=== PATIENT | male | born 1980 | race Caucasian/White ===

== ENCOUNTER 2018-06-16 09:15 | Emergency (ER) | payer MEDICAID, SELFPAY ==
[2018-06-16 09:43] VITALS: BP 137/85; PULSE 92; RESP 16; TEMP 36.3; O2SAT 99
--- NOTE | 2018-06-16 10:38 | ED.GENADUL_ITS ---
Discharge Plan Disposition Patient Disposition: HOME Condition: Improving Discharge Details Chief Complaint: Cellulitis Clinical Impression: Abscess, gluteal, right Primary Care Provider: Augustin Fisher ED Provider: Robbin Burger Home Meds and New Rx's Prescriptions: New sulfamethoxazole-trimethoprim [Bactrim DS] 800-160 mg tablet 1 tab PO BID 5 Days Qty: 10 RF: 0 No Action dextroamphetamine-amphetamine [Adderall] 30 MG tablet 40 mg PO BID RF: 0 Discharge Instructions Instructions: Abscess (ED) Additional Instructions: 1. Drink plenty of fluids. 2. Continue all medications as prescribed. 3. Acetaminophen 1000mg every 4 hours (up to 5 time a day) and/or ibuprofen 600mg every 6 hours as needed for fever or pain. 4. Bactrim DS twice a day for 5 days per 5. Leave dressing in place for 1-2 days. Frequent warm compresses/sitz baths. Return to the Emergency Department (ED) if your condition worsens, does not improve as expected, or for ANY other concerns. Specifically, return if you have new or uncontrolled pain, worsening fever, difficulty breathing, vomiting, or are unable to drink fluids. Referrals: Augustin Fisher, DINING MANAGER [Primary Care Provider] - Medical Decision Making 38-year-old healthy gentleman presents with 3 days of accelerating erythema, tenderness, and swelling to his right proximal lateral gluteal region. Exam normal except for the lesion described above. Bedside ultrasound confirmed an underlying fluid collection suggestive of an abscess. Incision and drainage performed with a field block followed by scalpel incision with significant purulent content expressed. Needle drivers were used to break up deep loculations and the wound was packed with iodoform gauze. Patient discharged home with wound care instructions and a 5-day prescription for Bactrim DS. Given usual customary return instructions at time of discharge. Medical Records Medical records reviewed: Yes I reviewed the patient's medical records. HPI 38-year-old gentleman with a past medical history which includes GERD. He has no previous history of abscesses or of colonized MRSA infection. Presents with 3 days of worsening pain, tenderness, erythema, and swelling on his right lateral gluteal region. First noted a boil 3 days ago and attempted to express pus from the lesion. He notes that this was significantly painful and had no pus expressed. Over the past 3 days, he has had worsening erythema, pain, and swelling. He attempted to self incise a possible abscess unsuccessfully at home. Denies associated fever/chills, erythema proximal to the lesion. Otherwise denies any nausea/emesis, lower extremity pain or swelling, chest pain/palpitations, or generalized abdominal pain. General Date/Time Provider Initiated Documentation: 06/16/18 10:01 . Related Data Home Medications Medication Instructions Recorded Confirmed dextroamphetamine-amphetamine 40 mg PO BID 07/31/12 06/16/18 [Adderall] sulfamethoxazole-trimethoprim 1 tab PO BID 5 Days #10 tab NS 06/16/18 [Bactrim DS] Previous Rx's Medication Instructions Recorded sulfamethoxazole-trimethoprim 1 tab PO BID 5 Days #10 tab NS 06/16/18 [Bactrim DS] Allergies Allergy/AdvReac Type Severity Reaction Status Date / Time SCALLOPS Allergy Severe anaphlaxis Uncoded 06/16/18 09:48 General Stated Complaint: Cellulitis EBONY: 4 Review of Systems Review of Systems All systems are reviewed and are unremarkable except as noted in HPI and below: CONSTITUTIONAL: no fevers/chills, no weakness or change in appetite EYES: no change in vision HEENT: no throat pain or difficulty swallowing; no neck pain CARDIOVASCULAR: no chest pain, palpitations, leg swelling, or diaphoresis RESPIRATORY: no cough, dyspnea, wheezing GASTROINTESTINAL: no abdominal pain, melena, nausea/emesis GENITOURINARY: no dysuria, flank pain, MUSCULOSKELETAL: no pack pain, myalgias, arthralgias INTEGUMENTARY: Tender, erythematous, swollen, area on the right proximal gluteal region NEUROLOGIC: no headache, focal weakness, difficulty with speech, numbness PSYCHIATRIC: no confusion, no anxiety HEME: no easy bruising or bleeding ALLERGIC: no urticaria PFSH Medical History Gastroesophageal reflux disease Surgical History Myringotomy w/ PE (pressure equalizing) tubes Tonsillectomy and adenoidectomy Family History Grandfather Personal history of malignant neoplasm Grandmother Personal history of malignant neoplasm Social History Smoking/Tobacco Use Status: Never Alcohol Intake: never Drug use: Never Substance use type: does not use Do you feel safe at home: Yes Do you feel safe in your relationship?: Yes Exam Narrative Exam Narrative: Nursing note and vital signs have been reviewed and noted. GENERAL: alert, active, no acute distress, well -hydrated, well-nourished HEENT: atraumatic/normocephalic, PERRLA, EOMI, conjunctiva clear, external ears/canals normal, nasal mucosa normal NECK: supple, full range of motion CARDIOVASCULAR: nl pulses, no edema PULMONARY: nl effort, no audible wheezing or stridor ABDOMEN: non-distended EXTREMITY: normal muscle tone, all joints with FROM, no deformity NUERO: normal mentation, moving all extremities, normal stance and gait, PSYCH: alert and oriented SKIN: 4 cm diameter erythematous patch on the right proximal lateral gluteal region with induration, tenderness, and a central excoriated lesion with no significant drainage Course Vital Signs Temperature 97.3 F L 06/16/18 09:43 Pulse 92 H 06/16/18 09:43 Respiratory Rate 16 06/16/18 09:43 Blood Pressure 137/85 06/16/18 09:43 Pulse Oximetry 99 06/16/18 09:43 Temperature 97.3 F L 06/16/18 09:43 Temperature Source Temporal Artery Scan 06/16/18 09:43 Pulse 92 H 06/16/18 09:43 Respiratory Rate 16 06/16/18 09:43 Respiratory Effort Non-Labored 06/16/18 09:47 Blood Pressure 137/85 06/16/18 09:43 Blood Pressure Position Sitting 06/16/18 09:43 Pulse Oximetry 99 06/16/18 09:43 Oxygen Delivery Method Room Air 06/16/18 09:43 Oxygen Flow Rate 0 06/16/18 09:43 Pain Level 7 06/16/18 09:43 Procedures Abscess I/D Site: Lower Extremity Side (if applicable): Right Sedation/analgesia: None Local Anesthetic: Lidocaine 1% Amount of anesthesia used (mL): 8 Technique: Incised with #11 Blade Amount of fluid expressed (mL): 10 Irrigation: No Packing used?: Iodoform Complications: Other (None)
== END 2018-06-16 10:41 | disposition home or self-care (01) ==
PROVIDERS: Emergency Provider Emergency Medicine; PCP Nurse Practitioner Family
DX: L02.31 Cutaneous abscess of buttock (principal)
CPT/HCPCS: 10060

== ENCOUNTER 2018-08-21 14:22 | Outpatient (REF) | payer MEDICAID, SELFPAY ==
[2018-08-27 16:02] LABS: Benzoylecgonine 51 ng/mL (Cutoff: 50); Cocaine Negative ng/mL (Cutoff: 50); Cocaine Interpretation Positive.
== END 2018-08-21 14:42 ==
LOC: NCHCN 14:22
PROVIDERS: PCP Nurse Practitioner Family; Visit Provider Nurse Practitioner Family
DX: E78.5 Hyperlipidemia, unspecified (principal); F90.0 Attention-deficit hyperactivity disorder, predominantly inattentive type; F14.20 Cocaine dependence, uncomplicated
CPT/HCPCS: 80353; 82520

== ENCOUNTER 2018-08-27 19:39 | Outpatient (REF) | payer MEDICAID, SELFPAY | END 2018-08-27 19:59 | LOC: NCHCN 19:39 | PROVIDERS: PCP Nurse Practitioner Family; Visit Provider Nurse Practitioner Family | DX: L02.31 Cutaneous abscess of buttock (principal) | CPT/HCPCS: 87077; 87070; 87186; 87205 ==

== ENCOUNTER 2018-10-27 17:59 | Emergency (ER) | payer MEDICAID, SELFPAY ==
[2018-10-27 18:04] VITALS: BP 138/89; PULSE 63; RESP 14; TEMP 36.8; O2SAT 96
--- NOTE | 2018-10-27 18:17 | ED.GENADUL_ITS ---
Discharge Plan Disposition Patient Disposition: HOME Condition: Improving Discharge Details Chief Complaint: Cellulitis Clinical Impression: Cellulitis of knee, right Primary Care Provider: Augustin Fisher ED Provider: Caleb Leggett Home Meds and New Rx's Prescriptions: New sulfamethoxazole-trimethoprim [Bactrim DS] 800-160 mg tablet 1 tab PO BID 10 Days Qty: 14 RF: 0 Continued dextroamphetamine-amphetamine [Adderall] 30 MG tablet 40 mg PO BID RF: 0 Discharge Instructions Instructions: Cellulitis (ED) Additional Instructions: Follow-up with Augustin Fisher in clinic for recheck in 7 to 10 days time. Your wound culture from August 272018 was positive for MRSA as we discussed. Take Bactrim as prescribed. Apply warm, moist heat to area to speed healing and reduce discomfort. Return for any acute concern Medical Decision Making 38-year-old male with a history of previous cutaneous abscesses, positive MRSA on August 27 of this year, who presents with 2 days of right knee pustule that is begun to have spreading erythema after manipulation at home. Bedside ultrasound does not reveal deep fluid collection. Consistent with cellulitis and will cover for MRSA with a course of Bactrim. He will follow-up with Augustin Fisher in the clinic and consider a discussion of referral to infectious disease if he has ongoing cutaneous abscesses. HPI General Mode of arrival: ambulatory . Date/Time Provider Initiated Documentation: 10/27/18 18:03 . Limitations to Documentation: no limitations . Information obtained by: patient . History of Present Illness 38 year old M presents to the emergency department with the chief complaint of Right knee folliculitis, described as mild, Quality is described as constant, and is localized to the right and lower extremity. Patient reports no radiation. Patient started experiencing this day(s) and it has been constant. No relieving factors improve symptom(s), No exacerbating factors reported . Patient notes other (Erythema and mild discharge at home). Patient did receive the following treatments prior to arrival, none Related Data Home Medications Medication Instructions Recorded Confirmed dextroamphetamine-amphetamine 40 mg PO BID 07/31/12 10/27/18 [Adderall] sulfamethoxazole-trimethoprim 1 tab PO BID 10 Days #14 tab 10/27/18 [Bactrim DS] Previous Rx's Medication Instructions Recorded sulfamethoxazole-trimethoprim 1 tab PO BID 10 Days #14 tab 10/27/18 [Bactrim DS] Allergies Allergy/AdvReac Type Severity Reaction Status Date / Time SCALLOPS Allergy Severe anaphlaxis Uncoded 10/27/18 18:07 General Stated Complaint: Cellulitis EBONY: 3 Review of Systems Review of Systems 6 systems reviewed and otherwise negative. No systemic symptoms. Positive MRSA August 27 [facility] Medical History Gastroesophageal reflux disease Surgical History Myringotomy w/ PE (pressure equalizing) tubes Tonsillectomy and adenoidectomy Family History Grandfather Personal history of malignant neoplasm Grandmother Personal history of malignant neoplasm Social History Smoking/Tobacco Use Status: Never Alcohol Intake: never Drug use: Never Substance use type: does not use Do you feel safe at home: Yes Do you feel safe in your relationship?: Yes Exam Narrative Exam Narrative: GEN: awake, alert, oriented 3. Pleasant, well groomed, interactive. HEAD: Normocephalic, atraumatic ENT: Mucous membranes moist, oropharynx unremarkable, External ear exam unremarkable EYES: PERRL, EOMI EXT: Full ROM, no edema, there is right proximal tibia anterior area of erythema measuring approximately 4 cm in diameter with central area of excoriation. No fluctuance Neuro: Grossly normal neurologic exam, conversant, interactive. Psych: Speech fluent, thoughts congruent, affect normal Course Vital Signs Temperature 36.8 C 10/27/18 18:04 Pulse 63 10/27/18 18:04 Respiratory Rate 14 10/27/18 18:04 Blood Pressure 138/89 10/27/18 18:04 Pulse Oximetry 96 10/27/18 18:04 Temperature 36.8 C 10/27/18 18:04 Temperature Source Temporal Artery Scan 10/27/18 18:04 Pulse 63 10/27/18 18:04 Respiratory Rate 14 10/27/18 18:04 Respiratory Effort Non-Labored 10/27/18 18:06 Blood Pressure 138/89 10/27/18 18:04 Blood Pressure Position Sitting 10/27/18 18:04 Pulse Oximetry 96 10/27/18 18:04 Oxygen Delivery Method Room Air 10/27/18 18:04 Oxygen Flow Rate 0 10/27/18 18:04 Pain Level 4 10/27/18 18:04
[2018-10-27] MEDS: Sulfameth/Trimeth DS TAB 1 TAB PO (18:21)
== END 2018-10-27 18:24 | disposition home or self-care (01) ==
PROVIDERS: Emergency Provider Emergency Medicine; PCP Nurse Practitioner Family
DX: L03.115 Cellulitis of right lower limb (principal); Z86.14 Personal history of Methicillin resistant Staphylococcus aureus infection
CPT/HCPCS: 99283

== ENCOUNTER 2018-11-20 09:50 | Outpatient (REF) | payer MEDICAID, SELFPAY ==
[2018-11-20 19:07] LABS: Abs Immature Grans 0.02 k/cumm (0.0-0.09); Absolute Basophil Count 0.04 k/cumm (0.0-0.2); Absolute Eosinophil Count 0.34 k/cumm (0.0-0.7); Absolute Lymphocyte Count 2.37 k/cumm (1.2-3.4); Absolute Monocyte Count 0.86 k/cumm (0.11-0.7); Absolute Neutrophil Count 3.98 k/cumm (1.2-6.7); Basophils % 0.5; Eosinophils % 4.5; HCT 45.9 % (40.0-50.0); Immature Grans % 0.3; Lymphocytes % 31.1; Mean Corp. HGB Concentration 32.7 g/dL (32.0-36.0); Mean Corpuscular Hemoglobin 28.3 pg (27.0-33.0); Mean Corpuscular Volume 86.6 fL (80-95); Monocytes % 11.3; Neutrophils % 52.3; Platelet Count 385 x1000/uL (130-400); RBC Distribution Width 14.3 % (11.8-14.1); White Blood Cell Count 7.61 k/cumm (4.4-10.8)
[2018-11-20 19:17] LABS: ALT 27 U/L (16-63); AST 16 U/L (15-37); Albumin 4.2 g/dL (3.4-5.0); Alkaline Phosphatase 73 U/L (46-116); Anion Gap 9.6 mmol/L (3-11); BUN 17 mg/dL (7-18); Bilirubin, Total 0.5 mg/dL (0.2-1.0); CO2 29.4 mmol/L (21.0-32.0); CREATININE 1.03 mg/dL (0.70-1.30); Calcium 9.8 mg/dL (8.5-10.1); Calculated LDL 158 mg/dL; Chloride 103 mmol/L (98-107); Cholesterol 217 mg/dL (50-200); Glucose 98 mg/dL (70-100); HDL Cholesterol 49 mg/dL (40-60); Potassium 5.4 mmol/L (3.5-5.1); Sodium 142 mmol/L (136-145); Total Protein 7.1 g/dL (6.4-8.2); Triglyceride 51 mg/dL (30-150)
== END 2018-11-20 10:10 ==
LOC: NCHCN 09:50
PROVIDERS: PCP Nurse Practitioner Family; Visit Provider Nurse Practitioner Family
DX: E78.5 Hyperlipidemia, unspecified (principal)
CPT/HCPCS: 80053; 80061; 83721; 85025

== ENCOUNTER 2019-04-08 09:48 | Outpatient (REF) | payer MEDICAID, SELFPAY ==
[2019-04-08 20:14] LABS: COMMENT (LAB VIEW ONLY) 89.85 mg/dL; Microalb ug/mg Crea 7.5 ug/mg Cr
[2019-04-08 20:24] LABS: COMMENT (LAB VIEW ONLY) 88.54 mg/dL; Prot/Crea Ur Ratio 0.11
== END 2019-04-08 10:08 ==
LOC: NCHCN 09:48
PROVIDERS: PCP Nurse Practitioner Family; Visit Provider Nurse Practitioner Family
DX: I10 Essential (primary) hypertension (principal); Z00.00 Encounter for general adult medical examination without abnormal findings
CPT/HCPCS: 82043; 82565; 82570; 84156

== ENCOUNTER 2019-11-09 17:49 | Outpatient (REF) | payer SELFPAY ==
[2019-11-13 00:19] LABS: SARS-CoV-2 RNA Undetected (Undetected); SARS-CoV-2 Specimen Source Nasopharynx
== END 2019-11-09 18:09 ==
LOC: NCHCN 17:49
PROVIDERS: PCP Nurse Practitioner Family; Visit Provider Nurse Practitioner Family
DX: Z11.59 Encounter for screening for other viral diseases (principal)
CPT/HCPCS: U0003

== ENCOUNTER 2020-04-24 14:31 | Outpatient (REF) | payer SELFPAY ==
[2020-04-24 17:59] LABS: HCT 46.4 % (40.0-50.0); HGB 15.3 g/dL (13.5-17.5); MPV 9.5 fL (8.0-11.0); Platelet Count 369 10^3/uL (130-400); RBC 5.46 10^6/uL (4.36-5.78); RDW-SD 40.1 fL; WBC 7.78 10^3/uL (4.4-10.8)
[2020-04-24 18:12] LABS: Hemoglobin A1C 5.4 % (<5.7)
[2020-04-24 18:19] LABS: ALT 34 U/L (16-63); AST 22 U/L (15-37); Albumin 4.5 g/dL (3.4-5.0); Alkaline Phosphatase 69 U/L (46-116); Anion Gap 4.8 mmol/L (3-11); BUN 19 mg/dL (7-18); Bilirubin, Total 0.4 mg/dL (0.2-1.0); CO2 29.2 mmol/L (21.0-32.0); CREATININE 1.35 mg/dL (0.70-1.30); Calcium 10.4 mg/dL (8.5-10.1); Calculated LDL 216 mg/dL (<100); Chloride 103 mmol/L (98-107); Cholesterol 264 mg/dL (<200); Estimated GFR 58.24 (mL/min/1.73m2); Glucose 96 mg/dL (74-106); HDL Cholesterol 38 mg/dL (40-60); Potassium 5.3 mmol/L (3.5-5.1); Sodium 137 mmol/L (136-145); Triglyceride 51 mg/dL (<150)
[2020-04-28 17:09] LABS: Testosterone, Free 11.6 ng/dL (4.46-17.1); Testosterone, Total 528 ng/dL (240-950)
== END 2020-04-24 14:51 ==
LOC: NCHCN 14:31
PROVIDERS: PCP Nurse Practitioner Family; Visit Provider Nurse Practitioner Family
DX: R53.83 Other fatigue (principal); N52.9 Male erectile dysfunction, unspecified
CPT/HCPCS: 80053; 80061; 84402; 84403; 85027; 83036; 84443

== ENCOUNTER 2020-06-16 11:19 | Outpatient (REF) | payer SELFPAY ==
[2020-06-16 18:16] LABS: COMMENT (LAB VIEW ONLY) 33.96 mg/dL
[2020-06-16 18:32] LABS: COMMENT (LAB VIEW ONLY) 33.79 mg/dL; PROTEIN < 6.0 mg/dL
== END 2020-06-16 11:20 | disposition home or self-care (01) ==
LOC: NCHCN 11:19
PROVIDERS: PCP Nurse Practitioner Family; Visit Provider Nurse Practitioner Family
DX: I10 Essential (primary) hypertension (principal)
CPT/HCPCS: 82043; 82565; 82570; 84156

== ENCOUNTER 2022-07-29 15:23 | Outpatient (REF) | payer OTHER, SELFPAY ==
[2022-07-29 15:27] LABS: Anion Gap 1.4 mmol/L (3-11); BUN 21 mg/dL (7-18); CO2 29.6 mmol/L (21.0-32.0); CREATININE 1.1 mg/dL (0.70-1.30); Calcium 9.3 mg/dL (8.5-10.1); Calculated LDL 167 mg/dL (<100); Chloride 105 mmol/L (98-107); Cholesterol 213 mg/dL (<200); Estimated GFR 85.42 (mL/min/1.73m2); Glucose 92 mg/dL (74-106); HDL Cholesterol 37 mg/dL (40-60); Potassium 4.9 mmol/L (3.5-5.1); Sodium 136 mmol/L (136-145); Triglyceride 47 mg/dL (<150)
== END 2022-07-29 15:24 | disposition home or self-care (01) ==
LOC: NCHCN 15:23
PROVIDERS: PCP Physician Assistant; Visit Provider Physician Assistant
DX: I10 Essential (primary) hypertension (principal)
CPT/HCPCS: 80048; 80061

== ENCOUNTER 2023-05-21 12:45 | Outpatient (REF) | payer SELFPAY ==
[2023-05-21 16:01] LABS: Anion Gap 5.9 mmol/L (3-11); BUN 20 mg/dL (7-18); CO2 34.1 mmol/L (21.0-32.0); CREATININE 1.2 mg/dL (0.70-1.30); Calcium 10.4 mg/dL (8.5-10.1); Calculated LDL 165 mg/dL (<100); Chloride 102 mmol/L (98-107); Cholesterol 229 mg/dL (<200); Estimated GFR 76.48 (mL/min/1.73m2); Glucose 79 mg/dL (74-106); HDL Cholesterol 58 mg/dL (40-60); Potassium 5.3 mmol/L (3.5-5.1); Sodium 142 mmol/L (136-145); Triglyceride 32 mg/dL (<150)
== END 2023-05-21 12:46 | disposition home or self-care (01) ==
LOC: NCHCN 12:45
PROVIDERS: PCP Physician Assistant; Visit Provider Physician Assistant
DX: E78.5 Hyperlipidemia, unspecified (principal); I10 Essential (primary) hypertension
CPT/HCPCS: 80048; 80053; 80061; 82306; 82728; 83036; 83540; 83550; 84443; 85025